=== PATIENT | male | born 2000 | race Caucasian/White ===

== ENCOUNTER 2018-11-09 08:39 | Emergency (ER) | payer MEDICAID, OTHER ==
[~2018-11-09] VITALS: Ht 172.7 cm; Wt 72.6 kg
[~2018-11-09 08:39] MED LIST: LISD50CA PO; QUET300T4 PO
--- NOTE | 2018-11-09 08:40 | NUR ---
PT ESCORTED TO BED 7 BY [place] [place] [employer] OFFICER
[2018-11-09 08:42] VITALS: BP 129/92
--- NOTE | 2018-11-09 08:44 | NUR ---
[facility]. CLOSED/HEALING WOUND TO R 1ST TOE. PT DENIES PAIN, N/V/FEVER, OR ANY OTHER MEDICAL PROBLEMS. VSS; PATIENT POSITIONED FOR COMFORT; HOB ELEVATED; BEDRAILS UP X1; BED DOWN. ER MD MADE AWARE OF PT STATUS.
--- NOTE | 2018-11-09 08:47 | NUR ---
SEEN BY DR. RUBIO
[2018-11-09] MEDS ORDERED: CLINDAMYCIN 600 MG/4 ML VIAL IM ONE (09:20)
[2018-11-09] MEDS ORDERED: KETOROLAC 60 MG/2 ML VIAL IM ONE (09:20)
--- NOTE | 2018-11-09 09:24 | NUR ---
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
[2018-11-09] MEDS ORDERED: BACITRACIN OINT 500 UNITS/GM PKT TP ONE (09:52)
--- NOTE | 2018-11-09 10:47 | NUR ---
Patient discharged with v/s stable. Written and verbal after care instructions given and explained. Patient verbalized understanding. Ambulatory, ESCORTED BY KATIE CONDE. All questions addressed prior to discharge. Advised to follow up with PMD.
[2018-11-09 10:57] VITALS: BP 105/70
== END 2018-11-09 10:47 ==
LOC: MED 08:39
DX: S90.31XA Contusion of right foot, initial encounter (principal); F17.200 Nicotine dependence, unspecified, uncomplicated; Z02.89 Encounter for other administrative examinations; Z79.899 Other long term (current) drug therapy; X58.XXXA Exposure to other specified factors, initial encounter; Y93.89 Activity, other specified; Y92.89 Other specified places as the place of occurrence of the external cause; Y99.8 Other external cause status
CPT/HCPCS: 73630; 90471; 90715; 96372; 99283; J1885; J3490; Q0092